=== PATIENT | male | born 2000 | race Two or more races ===

== ENCOUNTER 2024-04-27 22:05 | Emergency (ER) | payer BC, OTHER ==
[~2024-04-27] VITALS: Ht 170.2 cm; Wt 77.1 kg
[2024-04-27 22:09] VITALS: BP 135/74; TEMP 98.1
[2024-04-27 22:43] VITALS: O2SAT 99
== END 2024-04-27 22:43 ==
LOC: ER 22:07
DX: S30.1XXA Contusion of abdominal wall, initial encounter (principal); J45.909 Unspecified asthma, uncomplicated; I50.9 Heart failure, unspecified; Y35.091A Legal intervention involving other firearm discharge, law enforcement official injured, initial encounter; Y93.89 Activity, other specified; Y92.89 Other specified places as the place of occurrence of the external cause; Y99.8 Other external cause status